=== PATIENT | female | born 1970 | race African-American/Black ===

== ENCOUNTER 2017-01-09 16:15 | Emergency (ER) | payer MEDICAID, OTHER ==
[~2017-01-09] VITALS: Ht 167.6 cm; Wt 86.0 kg
[2017-01-09] MEDS ORDERED: DIPHENHYDRAMINE 50MG CAPSULE PO ONE (19:15)
[2017-01-09 19:35] VITALS: BP 102/66
== END 2017-01-09 19:40 | disposition home or self-care (01) ==
LOC: ER 16:15
DX: L25.9 Unspecified contact dermatitis, unspecified cause (principal); F12.10 Cannabis abuse, uncomplicated; J45.909 Unspecified asthma, uncomplicated; I10 Essential (primary) hypertension; Z87.440 Personal history of urinary (tract) infections; Z98.890 Other specified postprocedural states
CPT/HCPCS: 99282; Q0163

== ENCOUNTER 2017-01-15 09:35 | Emergency (ER) | payer OTHER ==
[~2017-01-15] VITALS: Ht 167.6 cm; Wt 75.0 kg
[2017-01-15 12:07] LABS: HEMATOCRIT. 25.1 % (36.0-48.0); HEMOGLOBIN. 7.6 g/dL (12.0-16.0); MEAN CORPUSCULAR HEMOGLOBIN 16.5 pg (28.0-32.0); MEAN CORPUSCULAR VOLUME 54.2 fL (81.0-99.0); MEAN PLATELET VOLUME 8.3 fl (7.4-10.4); PLATELET 452 x1000/uL (130-400); RED BLOOD CELL COUNT 4.63 mill/uL (4.2-5.4); RED CELL DISTRIBUTION WIDTH 19.7 % (11.6-14.6)
[2017-01-15 12:21] LABS: CARBON DIOXIDE 25 mEq/L (21-32); CHLORIDE 108 mEq/L (98-107)
[2017-01-15 12:27] LABS: CLARITY URINE CLOUDY (CLEAR); COLOR URINE YELLOW (YELLOW); GLUCOSE URINE NEGATIVE (NEGATIVE); KETONES URINE TRACE (NEGATIVE); LEUKOCYTE ESTERASE URINE NEGATIVE (NEGATIVE); NITRITE URINE NEGATIVE (NEGATIVE); OCCULT BLOOD URINE NEGATIVE (NEGATIVE); PROTEIN URINE 1+ (NEGATIVE); SPECIFIC GRAVITY URINE 1.035 (1.005-1.030)
[2017-01-15 12:51] LABS: *AMPHETAMINES SCREEN URINE NEGATIVE (NEGATIVE); *BARBITURATES SCREEN URINE NEGATIVE (NEGATIVE); *BENZODIAZEPINES SCREEN URINE NEGATIVE (NEGATIVE); *COCAINE SCREEN URINE NEGATIVE (NEGATIVE); METHADONE URINE SCREEN NEGATIVE (NEGATIVE); OPIATES URINE SCREEN NEGATIVE (NEGATIVE); PHENCYCLIDINE URINE SCREEN NEGATIVE (NEGATIVE)
[2017-01-15 12:56] LABS: CANNABINOID URINE SCREEN PRESUMTIVE POSITIVE (NEGATIVE)
[2017-01-15 13:13] LABS: PLATELET ESTIMATE INCREASED
[2017-01-15 14:20] VITALS: BP 126/77
== END 2017-01-15 14:58 | disposition left against medical advice (07) ==
LOC: ER 09:35 → CANBEDREQ 16:21
DX: D50.9 Iron deficiency anemia, unspecified (principal); I10 Essential (primary) hypertension; N17.0 Acute kidney failure with tubular necrosis; E11.21 Type 2 diabetes mellitus with diabetic nephropathy; J01.90 Acute sinusitis, unspecified; L03.211 Cellulitis of face; J45.909 Unspecified asthma, uncomplicated; F12.10 Cannabis abuse, uncomplicated
CPT/HCPCS: 36415; 70486; 80053; 80305; 81001; 83036; 85025; 85651; 93005; 99285; Z7610

== ENCOUNTER 2017-03-03 19:39 | Emergency (ER) | payer OTHER ==
[~2017-03-03] VITALS: Ht 167.6 cm; Wt 77.0 kg
[2017-03-03] MEDS ORDERED: SODIUM CHLORIDE 0.9% 500 ML IV ONE (20:26)
[2017-03-03] MEDS ORDERED: IPRATROPIUM/ALBUTEROL 0.5-3(2.5)MG/3ML NEB HHN ONE (20:30)
[2017-03-03 21:11] LABS: CHLORIDE 108 mEq/L (98-107)
[2017-03-03 21:13] LABS: BASOPHILS % 1.1 % (0.0-2.0); EOSINOPHILS % 2.4 % (0.0-5.0); HEMATOCRIT. 25.9 % (36.0-48.0); LYMPHOCYTES % 14.3 % (20.0-50.0); MEAN CORPUSCULAR HEMOGLOBIN 17.1 pg (28.0-32.0); MEAN CORPUSCULAR VOLUME 55.5 fL (81.0-99.0); MEAN PLATELET VOLUME 8.6 fl (7.4-10.4); MONOCYTES % 10.4 % (2.0-8.0); NEUTROPHILS % 71.8 % (40.0-76.0); PLATELET 462 x1000/uL (130-400); RED BLOOD CELL COUNT 4.67 mill/uL (4.2-5.4); RED CELL DISTRIBUTION WIDTH 20.6 % (11.6-14.6)
[2017-03-03 21:14] LABS: CARBON DIOXIDE 23 mEq/L (21-32)
[2017-03-03 21:15] LABS: HCG SCREEN NEGATIVE
[2017-03-03 21:20] LABS: CREATINE KINASE 191 IU/L (26-192)
[2017-03-03 21:21] LABS: TROPONIN I < 0.02 ng/mL (0.00-0.04)
[2017-03-03 21:22] LABS: D-DIMER 0.35 mg/L FEU (<0.50); INR 1.2; PARTIAL THROMBOPLASTIN TIME 24.3 sec (23.4-31.0); PROTHROMBIN TIME 12.3 sec (9.4-11.6)
[2017-03-03 21:45] LABS: PLATELET ESTIMATE INCREASED
[2017-03-03 23:42] VITALS: BP 136/78
== END 2017-03-03 23:50 | disposition home or self-care (01) ==
LOC: ER 19:39
DX: J45.909 Unspecified asthma, uncomplicated (principal); I10 Essential (primary) hypertension
CPT/HCPCS: 36415; 71010; 80053; 82550; 83690; 83880; 84443; 84484; 84703; 85025; 85379; 85610; 85730; 93005; 94640; 96360; 96361; 99285; J7030; J7040; Z7610; J7620

== ENCOUNTER 2018-12-24 09:02 | Emergency (ER) | payer OTHER ==
[~2018-12-24] VITALS: Ht 167.6 cm; Wt 89.8 kg
[2018-12-24 09:48] LABS: HEMOGLOBIN. 7.8 g/dL (12.0-16.0); MEAN CORPUSCULAR HEMOGLOBIN 16.1 pg (28.0-32.0); MEAN PLATELET VOLUME 8.3 fl (7.4-10.4); PLATELET 523 x1000/uL (130-400); RED BLOOD CELL COUNT 4.81 mill/uL (4.2-5.4); RED CELL DISTRIBUTION WIDTH 19.8 % (11.6-14.6)
[2018-12-24 09:56] LABS: HCG SCREEN NEGATIVE; PARTIAL THROMBOPLASTIN TIME 23.6 sec (23.4-31.0); PROTHROMBIN TIME 10.5 sec (9.6-11.0)
[2018-12-24 10:13] LABS: CHLORIDE 110 mEq/L (98-107)
[2018-12-24 10:15] LABS: PLATELET ESTIMATE INCREASED
[2018-12-24 10:17] LABS: ETHANOL BLOOD < 10 mg/dL
[2018-12-24 10:20] LABS: LDL CHOLESTEROL 97 mg/dL (5-100)
[2018-12-24] MEDS ORDERED: ASPIRIN 325MG EC TABLET PO ONE (10:30)
[2018-12-24] MEDS ORDERED: IOHEXOL-350 100 ML BOTTLE ONE (10:49)
[2018-12-24 12:28] LABS: *AMPHETAMINES SCREEN URINE NEGATIVE (NEGATIVE); *BARBITURATES SCREEN URINE NEGATIVE (NEGATIVE); *BENZODIAZEPINES SCREEN URINE NEGATIVE (NEGATIVE)
[2018-12-24 12:29] LABS: *COCAINE SCREEN URINE NEGATIVE (NEGATIVE); METHADONE URINE SCREEN NEGATIVE (NEGATIVE); OPIATES URINE SCREEN NEGATIVE (NEGATIVE); PHENCYCLIDINE URINE SCREEN NEGATIVE (NEGATIVE)
[2018-12-24 12:32] LABS: CANNABINOID URINE SCREEN PRESUMTIVE POSITIVE (NEGATIVE)
[2018-12-24 12:56] VITALS: BP 148/86
== END 2018-12-24 14:16 | disposition left against medical advice (07) ==
LOC: ER 09:02 → CANBEDREQ 12:08 → SUPCPDRO 13:08 → ER 14:16
DX: I63.9 Cerebral infarction, unspecified (principal); R53.1 Weakness; D64.9 Anemia, unspecified; J45.909 Unspecified asthma, uncomplicated; I10 Essential (primary) hypertension; F12.10 Cannabis abuse, uncomplicated; Z98.890 Other specified postprocedural states
CPT/HCPCS: 36415; 70450; 70496; 70498; 71045; 80053; 80305; 80320; 81025; 82962; 83721; 84484; 84703; 85025; 85610; 85730; 93005; 99291; Q9967; G0480

== ENCOUNTER 2019-06-15 08:53 | Emergency (ER) | payer OTHER ==
[~2019-06-15] VITALS: Ht 167.6 cm; Wt 83.0 kg
[2019-06-15] MEDS ORDERED: METHYLPREDNISOLONE SOD SUCC 125 MG/2 ML VIAL IV STA (09:23)
[2019-06-15] MEDS ORDERED: SODIUM CHLORIDE 0.9% 1,000 ML IV ONE (09:23)
[2019-06-15] MEDS ORDERED: IPRATROPIUM BROMIDE (0.02%) 0.5MG/2.5ML NEB HHN STA (09:23)
[2019-06-15] MEDS ORDERED: ALBUTEROL (0.083%) 2.5MG/3ML NEB HHN STA (09:23)
[2019-06-15] MEDS ORDERED: ACETAMINOPHEN 325MG TABLET PO ONE (09:30)
[2019-06-15 09:50] LABS: HEMATOCRIT. 24.1 % (36.0-48.0); HEMOGLOBIN. 7.1 g/dL (12.0-16.0); MEAN CORPUSCULAR HEMOGLOBIN 15.1 pg (28.0-32.0); MEAN PLATELET VOLUME 8.2 fl (7.4-10.4); PLATELET 472 x1000/uL (130-400); RED BLOOD CELL COUNT 4.72 mill/uL (4.2-5.4); RED CELL DISTRIBUTION WIDTH 20.2 % (11.6-14.6)
[2019-06-15 09:58] LABS: INR 1.1; PROTHROMBIN TIME 11.4 sec (9.6-11.0)
[2019-06-15 10:01] LABS: CHLORIDE 108 mEq/L (98-107)
[2019-06-15 10:16] LABS: PLATELET ESTIMATE INCREASED
[2019-06-15] MEDS ORDERED: PIPERACILLIN/TAZ 3.375G PREMIX 50 ML IV ONE (10:45)
[2019-06-15] MEDS ORDERED: VANCOMYCIN 1 G PREMIX 200 ML IV ONE (10:45)
[2019-06-15 12:33] LABS: CLARITY URINE CLEAR (CLEAR); COLOR URINE YELLOW (YELLOW); KETONES URINE TRACE (NEGATIVE); LEUKOCYTE ESTERASE URINE NEGATIVE (NEGATIVE); NITRITE URINE NEGATIVE (NEGATIVE); OCCULT BLOOD URINE NEGATIVE (NEGATIVE); PROTEIN URINE 1+ (NEGATIVE); SPECIFIC GRAVITY URINE 1.027 (1.005-1.030)
[2019-06-15 13:30] VITALS: BP 118/64
== END 2019-06-15 14:37 | disposition left against medical advice (07) ==
LOC: ER 08:53 → CANBEDREQ 14:35 → ER 14:37
DX: J45.901 Unspecified asthma with (acute) exacerbation (principal); E87.2 Acidosis; R00.0 Tachycardia, unspecified; R50.9 Fever, unspecified; I10 Essential (primary) hypertension; F12.90 Cannabis use, unspecified, uncomplicated
CPT/HCPCS: 36415; 71045; 80053; 81003; 83605; 84145; 84484; 85025; 85610; 87040; 87086; 87804; 93005; 94644; 96365; 96367; 96375; 99285; J2543; J2930; J3370; J7030; J7611; Z7610

== ENCOUNTER 2020-11-13 21:52 | Emergency (ER) | payer OTHER ==
[~2020-11-13] VITALS: Ht 170.2 cm; Wt 96.0 kg
[2020-11-13] MEDS ORDERED: SODIUM CHLORIDE 0.9% 1,000 ML IV ONE (22:45)
[2020-11-13 23:47] LABS: HEMATOCRIT. 24.5 % (36.0-48.0); MEAN CORPUSCULAR HEMOGLOBIN 14.5 pg (28.0-32.0); MEAN CORPUSCULAR VOLUME 50.5 fL (81.0-99.0); MEAN PLATELET VOLUME 8.5 fl (7.4-10.4); PLATELET 446 x1000/uL (130-400); RED BLOOD CELL COUNT 4.85 mill/uL (4.2-5.4); RED CELL DISTRIBUTION WIDTH 19.5 % (11.6-14.6)
[2020-11-13 23:51] LABS: CHLORIDE 109 mEq/L (98-107)
[2020-11-14 00:41] LABS: PLATELET ESTIMATE NORMAL
[2020-11-14] MEDS ORDERED: FERR324T4 MT (01:17)
[2020-11-14] MEDS ORDERED: DOCU-138 MT (01:41)
[2020-11-14 01:48] VITALS: BP 130/76
== END 2020-11-14 01:49 | disposition home or self-care (01) ==
LOC: ER 22:34
DX: D64.9 Anemia, unspecified (principal); R94.31 Abnormal electrocardiogram [ECG] [EKG]
CPT/HCPCS: 36415; 80053; 85025; 93005; 96360; 99284; J7030; Z7610

== ENCOUNTER 2023-06-02 10:15 | Emergency (ER) | payer OTHER ==
[~2023-06-02] VITALS: Ht 167.6 cm; Wt 91.0 kg
[~2023-06-02 10:15] MED LIST: DOCU-138 MT; FERR324T4 MT
[2023-06-02 10:24] VITALS: O2SAT 99
[2023-06-02] MEDS ORDERED: ACETAMINOPHEN WITH CODEINE 300/30MG TABLET PO STA (12:37)
[2023-06-02] MEDS ORDERED: KETOROLAC 60MG/2ML VIAL IM STA (12:37)
[2023-06-02 13:01] LABS: CLARITY URINE CLEAR (CLEAR); COLOR URINE YELLOW (YELLOW); GLUCOSE URINE NEGATIVE (NEGATIVE); KETONES URINE NEGATIVE (NEGATIVE); LEUKOCYTE ESTERASE URINE NEGATIVE (NEGATIVE); NITRITE URINE NEGATIVE (NEGATIVE); OCCULT BLOOD URINE NEGATIVE (NEGATIVE); PH URINE 5.5 (4.5-8.0); PROTEIN URINE 1+ (NEGATIVE); SPECIFIC GRAVITY URINE 1.034 (1.005-1.030)
[2023-06-02 13:21] LABS: BASOPHILS % 0.8 % (0.0-2.0); EOSINOPHILS % 2.1 % (0.0-5.0); HEMATOCRIT. 30.3 % (36.0-48.0); HEMOGLOBIN. 9.5 g/dL (12.0-16.0); MEAN CORPUSCULAR HEMOGLOBIN 18.9 pg (28.0-32.0); MEAN CORPUSCULAR HGB CONC 31.3 g/dL (31.0-37.0); MEAN CORPUSCULAR VOLUME 60.4 fL (81.0-99.0); MEAN PLATELET VOLUME 7.3 fl (7.4-10.4); MONOCYTES % 9.4 % (2.0-8.0); NEUTROPHILS % 53.7 % (40.0-76.0); PLATELET 371 x1000/uL (130-400); RED BLOOD CELL COUNT 5.02 mill/uL (4.2-5.4); RED CELL DISTRIBUTION WIDTH 19.7 % (11.6-14.6); WHITE BLOOD COUNT 6.3 x1000/uL (4.5-11.0)
[2023-06-02 13:30] LABS: BACTERIA URINE 1+; RBC URINE 0-2 /hpf (0-2); SQUAMOUS EPITHELIAL CELL URINE 1+ /lpf (RARE/1+); WBC URINE 0-2 /hpf (0-2); YEAST URINE NONE SEEN
[2023-06-02 14:08] LABS: ADD RBC MORPHOLOGY YES; DIFFERENTIAL COMMENT 1
[2023-06-02 16:15] LABS: ALANINE AMINOTRANSFERASE 9 IU/L (10-49); ALBUMIN 4.5 g/dL (3.2-4.8); ASPARTATE AMINOTRANSFERASE 18 IU/L (<34); BILIRUBIN TOTAL 0.4 mg/dL (0.1-1.0); CALCIUM 9.2 mg/dL (8.7-10.4); CARBON DIOXIDE 16 mEq/L (21-32); CHLORIDE 105 mEq/L (98-107); CREATININE 0.9 mg/dL (0.6-1.0); GLUCOSE 97 mg/dL (70-105); POTASSIUM 3.7 mEq/L (3.5-5.1); PROTEIN TOTAL 9.3 g/dL (6.0-8.3); SODIUM 135 mEq/L (136-145); UREA NITROGEN BLOOD 9 mg/dL (9-23)
[2023-06-02] MEDS ORDERED: T3 PO (16:23)
[2023-06-02] MEDS ORDERED: NAPR-681 PO (16:23)
[2023-06-02 16:35] VITALS: BP 122/80; PULSE 88; RESP 18; TEMP 98.7
[2023-06-02 16:59] LABS: ANISOCYTOSIS 1+; HYPOCHROMASIA 3+; MICROCYTOSIS 3+; PLATELET ESTIMATE NORMAL
[2023-06-02] MEDS ORDERED: HYDR-4001 MT (18:59)
== END 2023-06-02 16:40 | disposition home or self-care (01) ==
LOC: ER 11:03
DX: R42 Dizziness and giddiness (principal); M25.511 Pain in right shoulder; F12.10 Cannabis abuse, uncomplicated; D64.9 Anemia, unspecified
CPT/HCPCS: 99285; 71045; 80053; 81003; 81025; 85025; 36415; 73030; 93005; 96372; J1885

== ENCOUNTER 2023-12-19 16:40 | Emergency (ER) | payer OTHER ==
[~2023-12-19] VITALS: Ht 172.7 cm; Wt 97.0 kg
[~2023-12-19 16:40] MED LIST changes: +HYDR-4001 MT; +NAPR-681 PO
[2023-12-19 16:45] VITALS: O2SAT 98
[2023-12-19] MEDS ORDERED: CYCL5TAB PO (21:59)
[2023-12-19] MEDS ORDERED: HYDR-4001 MT (22:02)
[2023-12-19 22:10] VITALS: BP 131/66; PULSE 68; RESP 17; TEMP 97.9
== END 2023-12-19 22:32 | disposition home or self-care (01) ==
LOC: ER 16:40
DX: S16.1XXA Strain of muscle, fascia and tendon at neck level, initial encounter (principal); M25.512 Pain in left shoulder; J45.909 Unspecified asthma, uncomplicated; I10 Essential (primary) hypertension; F12.10 Cannabis abuse, uncomplicated; V49.49XA Driver injured in collision with other motor vehicles in traffic accident, initial encounter; Y93.89 Activity, other specified; Y92.89 Other specified places as the place of occurrence of the external cause; Y99.8 Other external cause status
CPT/HCPCS: 73030; 99284

== ENCOUNTER 2024-11-26 00:15 | Emergency (ER) | payer OTHER ==
[~2024-11-26] VITALS: Ht 165.1 cm; Wt 88.0 kg
[2024-11-26 00:35] VITALS: TEMP 36.9; O2SAT 99
[2024-11-26] MEDS: PREDNISONE 20MG TABLET PO ONE (01:06)
[2024-11-26] MEDS: DIPHENHYDRAMINE 50MG CAPSULE PO ONE (02:04)
[2024-11-26 03:33] LABS: BASOPHILS % 0.8 % (0.0-2.0); EOSINOPHILS % 4.3 % (0.0-5.0); HEMATOCRIT. 33.4 % (36.0-48.0); HEMOGLOBIN. 10.8 g/dL (12.0-16.0); LYMPHOCYTES % 24.4 % (20.0-50.0); MEAN PLATELET VOLUME 8.0 fl (7.4-10.4); MONOCYTES % 6.0 % (2.0-8.0); NEUTROPHILS % 64.5 % (40.0-76.0); PLATELET 278 x1000/uL (130-400); RED BLOOD CELL COUNT 5.15 mill/uL (4.2-5.4); RED CELL DISTRIBUTION WIDTH 18.4 % (11.6-14.6)
[2024-11-26 03:36] LABS: ADD RBC MORPHOLOGY YES
[2024-11-26 03:49] LABS: CREATININE 0.9 mg/dL (0.6-1.0); UREA NITROGEN BLOOD 9 mg/dL (9-23)
[2024-11-26 03:50] LABS: TROPONIN I HIGH SENSITIVITY 7 ng/L (3.0-34)
[2024-11-26] MEDS ORDERED: FAMO-135 MT (04:31)
[2024-11-26] MEDS ORDERED: DIPH25CA83 MT (04:31)
[2024-11-26 04:57] VITALS: BP 167/103; PULSE 61; RESP 16; O2SAT 100
[2024-11-26 06:34] LABS: PLATELET ESTIMATE NORMAL
== END 2024-11-26 05:00 | disposition home or self-care (01) ==
LOC: ER 00:15
DX: T78.40XA Allergy, unspecified, initial encounter (principal); R07.89 Other chest pain; F12.10 Cannabis abuse, uncomplicated; J45.909 Unspecified asthma, uncomplicated; I10 Essential (primary) hypertension; Z79.899 Other long term (current) drug therapy; Z98.890 Other specified postprocedural states; X58.XXXA Exposure to other specified factors, initial encounter
CPT/HCPCS: 99285; 71045; 80048; 85025; 84484; 36415; 93005; Q0163; J7512